=== PATIENT | male | born 1995 ===

== ENCOUNTER 2018-03-08 13:08 | Emergency (ER) | payer OTHER ==
[2018-03-08 13:45] VITALS: BP 163/74
--- NOTE | 2018-03-08 13:54 | UC ---
Lower Extremity/Ankle HPI - HPI Summary HPI Summary: Twisted right ankle while playing [employer] yesterday pain in lateral ankle radiating one third up fibula - History of Current Complaint Chief Complaint: UCTrauma Stated Complaint: ANKLE INJURY (R) Time Seen by Provider: 03/08/18 13:50 Hx Obtained From: Patient Onset/Duration: Sudden Onset, Lasting Days - 1, Still Present Severity Initially: Mild Severity Currently: Mild Pain Intensity: 3 Pain Scale Used: 0-10 Numeric Aggravating Factor(s): Standing, Ambulation Alleviating Factor(s): Rest - We will, Elevation, Ice, OTC Meds Able to Bear Weight: No - Allergies/Home Medications Allergies/Adverse Reactions: Allergies Allergy/AdvReac Type Severity Reaction Status Date / Time penicillin V Allergy Unknown mother Verified 03/08/18 13:45 told child he was allergic, no known reaction Home Medications: Home Medications Ibuprofen [Goodsense Ibuprofen] 200 mg PO 03/08/18 [History] PMH/Surg Hx/FS Hx/Imm Hx Previously Healthy: Yes - Surgical History Surgical History: None - Family History Known Family History: Positive: None - Social History Occupation: Student Lives: With Family Alcohol Use: Occasionally Substance Use Type: None Smoking Status (MU): Former Smoker Review of Systems Constitutional: Negative Skin: Negative Eyes: Negative ENT: Negative Respiratory: Negative Cardiovascular: Negative Gastrointestinal: Negative Genitourinary: Negative Motor: Decreased ROM - right ankle Neurovascular: Negative Musculoskeletal: Arthralgia - right ankle Neurological: Negative Psychological: Negative Is Patient Immunocompromised?: No All Other Systems Reviewed And Are Negative: Yes Physical Exam Triage Information Reviewed: Yes Appearance: Well-Appearing, Well-Nourished, Pain Distress Vital Signs: Initial Vital Signs Temp 98.4 F 03/08/18 13:40 Pulse 91 03/08/18 13:40 Resp 18 03/08/18 13:40 BP 163/74 03/08/18 13:40 Pulse Ox 98 03/08/18 13:40 Vital Signs Reviewed: Yes Eye Exam: Normal Eyes: Positive: Conjunctiva Clear ENT Exam: Normal ENT: Positive: Normal ENT inspection, Hearing grossly normal, Pharynx normal, TMs normal. Negative: Nasal congestion, Trismus, Muffled voice, Hoarse voice, Dental tenderness, Sinus tenderness, Uvula midline Dental Exam: Normal Neck exam: Normal Neck: Positive: Supple, Nontender Respiratory Exam: Normal Respiratory: Positive: Chest non-tender, Lungs clear, Normal breath sounds, No respiratory distress, No accessory muscle use Cardiovascular Exam: Normal Cardiovascular: Positive: RRR, No Murmur, Pulses Normal, Brisk Capillary Refill Musculoskeletal Exam: Other Musculoskeletal: Positive: Strength Limited @ - right ankle, ROM Limited @ - right ankle, Edema @ - right lateral ankle Neurological Exam: Normal Neurological: Positive: Alert, Muscle Tone Normal Psychological Exam: Normal Skin Exam: Normal Diagnostics - Radiology No standard instances Xray Interpretation: No Acute Changes Radiology Interpretation Completed By: ED Physician, Radiologist Lower Extremity Course/Dx - Course Course Of Treatment: Adonay wrap gel splint and crutches, rest ice compression and elevation, Tylenol/ibuprofen for pain follow with Dr. Nails in 3-4 days - Differential Dx/Diagnosis Provider Diagnoses: right ankle sprain Discharge - Sign-Out/Discharge Documenting (check all that apply): Discharge/Admit/Transfer - Discharge Plan Condition: Stable Disposition: HOME Patient Education Materials: Ankle Sprain (DC), Crutch Instructions (ED), Ankle Stirrup Splint (ED), R.I.C.E. Treatment (ED) Referrals: Rahul Nails MD [Medical Doctor] - 4 Days - Billing Disposition and Condition Condition: STABLE Disposition: HOME
--- NOTE | 2018-03-08 14:09 | RAD ---
INDICATION: Right ankle injury. TECHNIQUE: 3 views of the right ankle were obtained. FINDINGS: Soft tissue swelling is noted along the anterolateral aspect of the ankle. No fracture is seen. Joint spaces appear maintained. IMPRESSION: SOFT TISSUE SWELLING, NO FRACTURE IS SEEN.
== END 2018-03-08 14:24 | disposition home or self-care (01) ==
LOC: UCCORT 13:08
DX: S93.401A Sprain of unspecified ligament of right ankle, initial encounter (principal); X50.0XXA Overexertion from strenuous movement or load, initial encounter; Y93.74 Activity, frisbee; Y92.9 Unspecified place or not applicable; Z87.891 Personal history of nicotine dependence; Z88.0 Allergy status to penicillin
CPT/HCPCS: 99203; G0463